=== PATIENT | male | born 1995 | race Two or more races ===

== ENCOUNTER 2017-08-03 13:46 | Emergency (ER) | payer OTHER ==
[2017-08-03 14:07] VITALS: BP 120/81; PULSE 80; TEMP 98; BMI 27.2
[2017-08-03] MEDS ORDERED: DOXYCYCLINE HYCLATE 100 MG CAPSULE PO ONE ×2 (14:16→14:18)
--- NOTE | 2017-08-03 14:20 | PDOC ---
History of Present Illness - General Chief Complaint: Bite Stated Complaint: BITE - History of Present Illness Initial Comments: 22-year-old healthy male free of comorbidities presents for evaluation of a tick bite on his right thigh. He states he first noticed an engorged tick this morning and was able to pull it off. He has no other symptoms besides minor discomfort around the area of the bite. He is up-to-date on tetanus. 08/03/17 14:17 Past History - Past Medical History Allergies/Adverse Reactions: Allergies Allergy/AdvReac Type Severity Reaction Status Date / Time No Known Allergies Allergy Verified 08/03/17 14:07 Home Medications: Ambulatory Orders Albuterol Sulfate Inhaler - [Ventolin HFA Inhaler -] 2 inh PO Q4H PRN #1 inh Asthma: Yes COPD: No - Immunization History Immunization Up to Date: Yes - Suicide/Smoking/Psychosocial Hx Smoking Status: No Smoking History: Never smoked Have you smoked in the past 12 months: No Number of Cigarettes Smoked Daily: 0 Information on smoking cessation initiated: No Hx Alcohol Use: No Drug/Substance Use Hx: Yes (marijuana) Substance Use Type: None Review of Systems - Review of Systems Integumentary: Yes: See HPI All Other Systems: Reviewed and Negative *Physical Exam - Vital Signs Last Vital Signs Temp Pulse Resp BP Pulse Ox 98 F 80 16 120/81 100 08/03/17 14:04 08/03/17 14:04 08/03/17 14:04 08/03/17 14:04 08/03/17 14:04 - Physical Exam Comments: GENERAL: The patient is awake, alert, and fully oriented, in no acute distress. HEAD: Normal with no signs of trauma. EYES:conjunctiva clear. ENT: Ears normal NECK: Normal range of motion EXTREMITIES: Normal range of motion, no edema. NEUROLOGICAL: Cranial nerves II through XII grossly intact. Normal speech, normal gait. PSYCH: Normal mood, normal affect. SKIN: Warm, Dry, normal turgor, no rashes or lesions noted. There is no erythema or rashes around the area of the bite I am unable to see puncture wounds 08/03/17 14:18 *DC/Admit/Observation/Transfer Diagnosis at time of Disposition: Tick bite - Discharge Dispostion Disposition: HOME Condition at time of disposition: Stable Decision to Admit order: No - Referrals Referrals: Edgar Jc [Non Staff, Medical] - - Patient Instructions Additional Instructions: You're given a prophylactic dose of doxycycline for Lyme disease. Please follow- up with the primary care physician I recommended one for you to the next 2-3 days. Return to the emergency room should you develop any symptoms such as fever chills or night sweats nausea or vomiting. - Post Discharge Activity
== END 2017-08-03 14:32 | disposition home or self-care (01) ==
LOC: JERFT 13:46
DX: S70.361A Insect bite (nonvenomous), right thigh, initial encounter (principal); W57.XXXA Bitten or stung by nonvenomous insect and other nonvenomous arthropods, initial encounter; Y93.89 Activity, other specified; Y92.89 Other specified places as the place of occurrence of the external cause; Y99.8 Other external cause status
CPT/HCPCS: 99281-25